=== PATIENT | female | born 1945 | race African-American/Black ===

== ENCOUNTER 2018-07-07 05:56 | Emergency (ER) | payer MEDICARE ==
[2018-07-07] MEDS ORDERED: Nitroglycerin 2% Ointment 1 INCH/1 GM Packet ONE (06:45)
[2018-07-07] MEDS ORDERED: Morphine 4 MG/ML VIAL ONE (06:45)
[2018-07-07 07:11] LABS: ALT (SGPT) 11 U/L (8-55); AST (SGOT) 17 U/L (5-34); Albumin 4.3 g/dL (3.4-4.8); Alkaline Phosphatase 126 U/L (40-150); Anion Gap 15 mmol/L (10-20); BUN (Urea Nitrogen) 11 mg/dL (9.8-20.1); Bilirubin, Total 0.5 mg/dL (0.2-1.2); Calc. Creatinine Clearance 0 mL/min (70-130); Calcium 10.1 mg/dL (7.8-10.44); Carbon Dioxide 27 mmol/L (23-31); Chloride 105 mmol/L (98-107); Estimated GFR-MDRD 68; Globulin 3.5 g/dL (2.4-3.5); Glucose 95 mg/dL (83-110); Lipase 25 U/L (8-78); Potassium 3.6 mmol/L (3.5-5.1); Protein, Total 7.8 g/dL (6.0-8.3); Sodium 143 mmol/L (136-145)
[2018-07-07 07:25] LABS: Band 1 % (5-11); Hemoglobin 11.7 g/dL (12.0-16.0); Lymphocytes 33 % (21-51); MDiff Complete? YES; Mean Corpuscular HGB CONC 31.7 g/dL (32.0-36.0); Mean Corpuscular Volume 91.6 fL (78.0-98.0); Mean Platelet Volume 7.3 fL (7.4-10.4); Monocytes 8 % (0-10); Neutrophil 57 % (42-75); PLT Morphology Comment Appears Adequate; Platelet Count 435 thou/uL (130-400); RBC Distribution Width 13.3 % (11.5-14.5); Red Blood Cell (RBC) Count 4.04 mill/uL (4.20-5.40); White Blood Cell (WBC) Count 4.7 thou/uL (4.8-10.8)
--- NOTE | 2018-07-07 07:41 | RAD ---
PORTABLE UPRIGHT FRONTAL CHEST RADIOGRAPH: DATE: 07/07/2018. COMPARISON: None. HISTORY: Chest pain. FINDINGS: There is postoperative hardware associated with numerous left-sided ribs. There is an old left clavic le fracture. No pneumothorax, pleural fluid, focal consolidation, or alveolar edema. There is ather osclerosis calcification I the aortic arch. IMPRESSION: Chronic findings as above. No acute findings. POS: [facility]
[2018-07-07 07:43] LABS: CK (CPK) 43 U/L (29-168)
[2018-07-07] MEDS ORDERED: Amlodipine 5 MG TAB ONE (09:39)
== END 2018-07-07 11:30 | disposition short-term general hospital (02) ==
LOC: MADERS 05:56
DX: R07.2 Precordial pain (principal); R94.31 Abnormal electrocardiogram [ECG] [EKG]; E11.9 Type 2 diabetes mellitus without complications; I10 Essential (primary) hypertension; Z79.899 Other long term (current) drug therapy
CPT/HCPCS: 36415; 71045; 80053; 82550; 83690; 84484; 85025; 85379; 93005; 96374; J2270

== ENCOUNTER 2018-07-15 16:12 | Inpatient (IN) | payer MEDICARE ==
[2018-07-15 17:26] VITALS: BMI 25.3
[2018-07-15] MEDS ORDERED: Polyethylene Glycol 3350 17 GM Packet PO SCH (19:45)
[2018-07-15] MEDS ORDERED: cloNIDine 0.1 MG TAB PO PRN (20:31)
[2018-07-15] MEDS ORDERED: Dicyclomine 10 MG CAP PO PRN (20:31)
[2018-07-15] MEDS ORDERED: Apixaban 5 MG TAB PO SCH (21:30)
[2018-07-15] MEDS: Amlodipine 5 MG TAB PO SCH (21:32)
[2018-07-15] MEDS: Docusate 100 MG CAP PO SCH (21:33)
[2018-07-15] MEDS: Donepezil HCl 10 MG TAB PO SCH (21:34)
[2018-07-16] MEDS: Acetaminophen/Codeine 30-300mg Tablet PO PRN ×3 (06:23→20:08)
[2018-07-16] MEDS: Docusate 100 MG CAP PO SCH ×2 (08:17→20:06)
[2018-07-16] MEDS: Lisinopril 5 MG TAB PO SCH (08:18)
[2018-07-16] MEDS: Carvedilol 6.25 MG TAB PO SCH ×2 (08:18→17:17)
[2018-07-16] MEDS: Gabapentin 300 MG CAP PO SCH (08:18)
[2018-07-16] MEDS: Glimepiride 2 MG TAB PO SCH (08:18)
[2018-07-16] MEDS: Apixaban 5 MG TAB PO SCH ×2 (08:19→20:07)
[2018-07-16] MEDS: Polyethylene Glycol 3350 17 GM Packet PO SCH (10:13)
[2018-07-16] MEDS ORDERED: Fleet Enema 133 ML BOT FS PRN (13:44)
[2018-07-16] MEDS: Amlodipine 5 MG TAB PO SCH (20:06)
[2018-07-16] MEDS: Donepezil HCl 10 MG TAB PO SCH (20:07)
[2018-07-17] MEDS: Acetaminophen/Codeine 30-300mg Tablet PO PRN ×2 (08:54→18:03)
[2018-07-17] MEDS: Gabapentin 300 MG CAP PO SCH (08:54)
[2018-07-17] MEDS: Docusate 100 MG CAP PO SCH ×2 (08:54→20:04)
[2018-07-17] MEDS: Lisinopril 5 MG TAB PO SCH (08:55)
[2018-07-17] MEDS: Polyethylene Glycol 3350 17 GM Packet PO SCH (08:56)
[2018-07-17] MEDS: Apixaban 5 MG TAB PO SCH ×2 (08:56→20:04)
[2018-07-17] MEDS: Glimepiride 2 MG TAB PO SCH (08:56)
[2018-07-17] MEDS: Carvedilol 6.25 MG TAB PO SCH ×2 (08:56→17:09)
[2018-07-17] MEDS: Amlodipine 5 MG TAB PO SCH (20:04)
[2018-07-17] MEDS: Donepezil HCl 10 MG TAB PO SCH (20:05)
[2018-07-17] MEDS ORDERED: Apixaban 5 MG TAB PO SCH (21:00)
[2018-07-17] MEDS ORDERED: Ibuprofen 600 MG TAB PO SCH (21:15)
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
[2018-07-18] MEDS: Carvedilol 6.25 MG TAB PO SCH ×2 (08:20→17:31)
[2018-07-18] MEDS: Polyethylene Glycol 3350 17 GM Packet PO SCH (08:20)
[2018-07-18] MEDS: Gabapentin 300 MG CAP PO SCH ×2 (08:20→20:09)
[2018-07-18] MEDS: Lisinopril 5 MG TAB PO SCH (08:21)
[2018-07-18] MEDS: Acetaminophen/Codeine 30-300mg Tablet PO PRN ×3 (08:21→20:09)
[2018-07-18] MEDS: Glimepiride 2 MG TAB PO SCH (08:21)
[2018-07-18] MEDS: Apixaban 5 MG TAB PO SCH ×2 (08:21→20:08)
[2018-07-18] MEDS: Docusate 100 MG CAP PO SCH ×2 (08:22→20:08)
[2018-07-18] MEDS: Ibuprofen 600 MG TAB PO PRN ×2 (10:56→18:24)
[2018-07-18] MEDS: Amlodipine 5 MG TAB PO SCH (20:07)
[2018-07-18] MEDS ORDERED: Donepezil HCl 10 MG TAB PO SCH (21:00)
[2018-07-19] MEDS: Glimepiride 2 MG TAB PO SCH (08:20)
[2018-07-19] MEDS: Docusate 100 MG CAP PO SCH (08:20)
[2018-07-19] MEDS: Lisinopril 5 MG TAB PO SCH (08:20)
[2018-07-19] MEDS: Apixaban 5 MG TAB PO SCH (08:22)
[2018-07-19] MEDS: Polyethylene Glycol 3350 17 GM Packet PO SCH (08:22)
[2018-07-19] MEDS: Carvedilol 6.25 MG TAB PO SCH ×2 (08:22→17:17)
[2018-07-19] MEDS: Gabapentin 300 MG CAP PO SCH (08:22)
[2018-07-19] MEDS: Acetaminophen/Codeine 30-300mg Tablet PO PRN (09:18)
[2018-07-19] MEDS: Ibuprofen 600 MG TAB PO PRN (14:12)
[2018-07-19 19:25] VITALS: BP 150/67; TEMP 97.9
--- NOTE | 2018-07-21 08:17 | DIS ---
DATE OF ADMISSION: 07/15/2018 DATE OF DISCHARGE: 07/19/2018 REASON FOR ADMISSION: Skilled Rehab in [place]. DIAGNOSES: 1. Deconditioning secondary to generalized weakness. 2. Left leg deep vein thrombosis, recurrent, status post inferior vena cava filter placement, now on Eliquis. 3. Hypertension. 4. Dyslipidemia. 5. Alzheimer's dementia. 6. Dementia with behavioral disturbances. 7. Diabetes type 2, non-insulin requirement. 8. Neuropathic pain. 9. Gastroesophageal reflux. 10. History of noncompliance. 11. Unsteady gait. MEDICATIONS: 1. Eliquis 10 mg p.o. b.i.d. 2. Amlodipine 10 mg p.o. daily. 3. Carvedilol 12.5 mg p.o. b.i.d. 4. Donepezil 10 mg p.o. at bedtime. 5. Gabapentin 300 mg p.o. b.i.d. 6. Glimepiride 2 mg p.o. daily. 7. Lisinopril 5 mg p.o. daily. 8. Pantoprazole 40 mg p.o. daily. 9. Polyethylene glycol 17 gram p.o. daily. 10. Quetiapine 25 mg p.o. at bedtime. DISPOSITION: Home in [place] with the relative. FOLLOWUP : Followup with PCP. The patient's PCP is out of town, requesting for Dr. Martinez. Appointment was made in 1 to 2 weeks or sooner with concern. ACTIVITY: To use rolling walker at all times. DIET: 2000 kilocalorie diabetic AHA. Home health to be set up prior to discharge for PT/OT evaluation. ER warnings. HISTORY OF PRESENT ILLNESS AND HOSPITAL COURSE: Ms. Noriega is a 73-year-old female from [place], [place] with history of type 2 diabetes, hypertension, dementia, and history of previous DVT. She went to [facility] in 07/07/2018 initially for evaluation of chest pain. On further evaluation, her D-dimer was elevated. Thus, CT angiogram and venogram was ordered. Her CT angiogram showed no evidence of PE. Her cardiac studies including stress test and echocardiogram were unremarkable. During her hospital stay, she developed left leg pain. Her ultrasound of the leg showed evidence of left leg DVT. She was then initiated on Eliquis. She was started Eliiquis 10 mg p.o. b.i.d. then titrated Eliquis down to 5 mg po BID on . There was no recurrence of other episodes of chest pain noted thereafter. The patient remains generally weak and deconditioned, thus transferred to [facility] for further therapy prior to going back to the home environment. The patient was only approved by the insurance for a 3-day trial of therapy. During this 3-day skilled rehab stay, the patient had shown noncompliance to the therapy. She reports pain on her left leg and left knee swelling. Her gabapentin was increased to 300 mg p.o. b.i.d and could not do therapy. Staff reports that the patient was noted to ambulate on her own whenever she wants and does not want ambulate whenever therapy is present. She reports pain of the legs even with bed exercises. She was also noted to have intermittent confusion in the form of sundowning behaviors. She became agitated, belligerent, and resistant to the care per staff mostly at nighttime. Her dementia medicine was increased, from Donepezil 5 mg to Ddonepezil 10 mg p.o. at bedtime, for which, the daughter was agreeable as she herself witnessed the patient's behavior over the last [address] [facility]. On 07/19/2018, the patient was not approved to continue therapy per insurance, thus she was discharged home. RECOMMENDATION: Discharge. She was discharged with Home Health. However, this was not arranged prior to discharge because of her insurance approval. The patient to continue oral anticoagulant as directed. Vital signs prior to discharge : Blood pressure 150/67, temperature 97.9, pulse 70, respiration 18, O2 saturation 99% on room air. Weight 130 pounds, height 5 feet 3 inches. CODE STATUS: Full code. Job ID: [id number] [facility]
== END 2018-07-19 19:30 | disposition home health service (06) | DRG 948 ==
LOC: MADMS 16:16
PROVIDERS: ADMIT Family Medicine; ATTEND Family Medicine
DX: R53.1 Weakness (principal); F02.81 Dementia in other diseases classified elsewhere, unspecified severity, with behavioral disturbance; E11.9 Type 2 diabetes mellitus without complications; I10 Essential (primary) hypertension; G30.9 Alzheimer's disease, unspecified; E78.5 Hyperlipidemia, unspecified; R26.81 Unsteadiness on feet; K21.9 Gastro-esophageal reflux disease without esophagitis; M79.2 Neuralgia and neuritis, unspecified; Z98.890 Other specified postprocedural states; Z86.718 Personal history of other venous thrombosis and embolism; Z90.710 Acquired absence of both cervix and uterus; Z79.01 Long term (current) use of anticoagulants; Z79.899 Other long term (current) drug therapy
CPT/HCPCS: 36416; G8978-GP-CK; G8979-GP-CI; G8987-GO-CK; G8988-GO-CI